=== PATIENT | female | born 1960 | race Caucasian/White ===

== ENCOUNTER 2022-12-08 09:39 | Day surgery (SDC) | payer OTHER, SELFPAY ==
--- NOTE | 2022-12-08 09:55 | US_ITS ---
[address] [address] Patient Name: CHARLENE RUGGIERO MRN: [id number] date: 1960 Sex: F Assigned Patient Location: US Current Patient Location: Accession/Order Number: [id number] Exam Date: 12/08/2022 10:20 Report Date: 12/08/2022 11:37 At the request of: MARCIANO WU Procedure: US biopsy thyroid EXAMINATION: US biopsy thyroid HISTORY: Thyroid Nodule COMPARISON: Ultrasound thyroid 10/24/2022 TECHNIQUE: After obtaining informed consent, ultrasound-guided fine needle aspiration was performed in the usual sterile manner. FINDINGS: IMAGING: Ultrasound. BIOPSY NEEDLE: 25-gauge; 3 separate passes LOCATION: Left lobe 2.7 x 1.6 x 1.5 cm mass. SPECIMEN TYPE: Cellular tissue. LOCAL ANESTHETIC: Buffered Xylocaine. COMPLICATIONS: None. LABORATORY: Prepared slide smears and washings for cell block evaluation. OTHER: Negative. PATHOLOGY: Pending. An addendum will be added when results are available. US/US biopsy thyroid IMPRESSION: 1. Uneventful ultrasound guided fine needle aspiration (FNA). 2. Pathology results are pending. Electronically authenticated by: VERO JUDD Date: 12/08/2022 11:37
[2022-12-08 10:00] VITALS: BP 145/110; PULSE 90; O2SAT 95
[2022-12-08] MEDS: LIDOCAINE HCL 10 ML, SODIUM BICARBONATE 1 MEQ INJ (10:45)
== END 2022-12-08 11:00 | disposition home or self-care (01) ==
LOC: US 09:44
PROVIDERS: Radiology Diagnostic Radiology; Visit Provider Otolaryngology
DX: E04.1 Nontoxic single thyroid nodule (principal)
CPT/HCPCS: 10005; 88173